=== PATIENT | female | born 1990 | race Caucasian/White ===

== ENCOUNTER 2018-09-28 15:17 | Emergency (ER) | payer OTHER ==
--- NOTE | 2018-09-28 15:46 | PDOC ---
Rapid Medical Evaluation Chief Complaint: Injury Time Seen by Provider: 09/28/18 15:43 Medical Evaluation: 09/28/18 15:43 I have performed a brief in-person evaluation of this patient. The patient presents with a chief complaint of left knee pain since . Patient reports accidentally hit left knee with cell phone. Reports pain with weight bearing Pertinent physical exam finding: NAD even and unlabored breathing + tenderness with palpation over patellar I have ordered the following: xray The patient will procedd to the ED for further evaluation. Discharge Disposition - Diagnosis Knee pain, left - Referrals - Patient Instructions - Post Discharge Activity
[2018-09-28 15:47] VITALS: BP 112/71; PULSE 83; TEMP 97.5; BMI 21.7
--- NOTE | 2018-09-28 17:37 | PDOC ---
History of Present Illness - General Chief Complaint: Injury Stated Complaint: LT. KNEE PAIN Time Seen by Provider: 09/28/18 15:43 History Source: Patient Exam Limitations: No Limitations Past History - Travel Traveled outside of the country in the last 30 days: No Close contact w/someone who was outside of country & ill: No - Past Medical History Allergies/Adverse Reactions: Allergies Allergy/AdvReac Type Severity Reaction Status Date / Time codeine Allergy Verified 09/28/18 15:44 Home Medications: Ambulatory Orders NK [No Known Home Medication] 09/28/18 COPD: No - Immunization History Immunization Up to Date: Yes - Suicide/Smoking/Psychosocial Hx Smoking History: Current every day smoker Number of Cigarettes Smoked Daily: 10 Information on smoking cessation initiated: No Hx Alcohol Use: No Drug/Substance Use Hx: No Review of Systems - Review of Systems Able to Perform ROS?: Yes Comments:: 09/28/18 17:35 CONSTITUTIONAL: Absent: fever, chills, diaphoresis, generalized weakness, malaise, loss of appetite MUSCULOSKELETAL: Present: L knee pain Absent: myalgia, arthralgia, joint swelling SKIN: Absent: rash, itching, pallor NEUROLOGIC: Absent: headache, focal weakness or paresthesias, dizziness, unsteady gait, seizure, mental status changes, bladder or bowel incontinence PSYCHIATRIC: Absent: anxiety, depression, suicidal or homicidal ideation, hallucinations. Is the patient limited Thai proficient: No *Physical Exam - Vital Signs Last Vital Signs Temp Pulse Resp BP Pulse Ox 97.5 F L 83 17 112/71 98 09/28/18 15:41 09/28/18 15:41 09/28/18 15:41 09/28/18 15:41 09/28/18 15:41 - Physical Exam Comments: 09/28/18 17:35 GENERAL: The patient is awake, alert, and fully oriented, in no acute distress. HEAD: Normal with no signs of trauma. EYES: Pupils equal, round and reactive to light, extraocular movements intact, sclera anicteric, conjunctiva clear. EXTREMITIES: Normal range of motion, no edema. NEUROLOGICAL: Normal speech, normal gait. PSYCH: Normal mood, normal affect. SKIN: Warm, Dry, normal turgor, no rashes or lesions noted. *DC/Admit/Observation/Transfer Diagnosis at time of Disposition: Knee pain, left Qualifiers: Chronicity: acute Qualified Code(s): M25.562 - Pain in left knee - Discharge Dispostion Disposition: HOME Condition at time of disposition: Stable Decision to Admit order: No - Referrals Referrals: Geovani Hernandez [Primary Care Provider] - Yovany Rivera DO [Staff Physician] - Riley Bonilla MD [Staff Physician] - Will Ocampo MD [Staff Physician] - - Patient Instructions Printed Discharge Instructions: DI for Knee Pain Additional Instructions: you were evaluated for your knee pain today. Your x-ray of your knee was negative for fractures or dislocations. You may apply heat to the area Please wear the Erik wrap for comfort. You may use crutches as necessary to help you walk. Take Motrin 600 mg every 6 hours as needed for pain Please follow-up with orthopedics this week for further evaluation Return to the ER for any new or worsening symptoms. - Post Discharge Activity Forms/Work/School Notes: Back to Work
== END 2018-09-28 17:52 | disposition home or self-care (01) ==
LOC: JERFT 15:17
DX: M25.562 Pain in left knee (principal)
CPT/HCPCS: 73562-TC-LT-FY; 99281-25